=== PATIENT | male | born 1955 | race Asian ===

== ENCOUNTER 2016-07-22 05:14 | Inpatient (IN) | payer BC ==
--- NOTE | 2016-07-22 05:20 | EDPHY ---
H & P HPI/ROS: HPI CHIEF COMPLAINT: Seizure versus syncope HISTORY OF PRESENT ILLNESS: this patient very pleasant 61-year-old male, he presents emergency room by EMS after he had a unwitnessed syncope versus seizure at his work place. according to EMS patient arrived at work at 3:00 a.m. shortly after his coworkers found him lying on the ground there was description of generalized tonic-clonic seizure activity. He does arrive to the emergency room by EMS with a co-worker who states that they did not see him fall however found him on the ground and her seizure-like activity. Patient has no known history of seizures. Unclear what made him fall. The patient only tells me that he felt very dizzy/lightheaded prior to this. He did not know he passed out. He did not know he had a seizure. He presents in the ER in a cervical collar he is alert and orient x4, he has a GCS 15, he does speak some [place] however [place] language is [place]. He denies headache or neck pain. He does tell me that his only medical problem is hypertension he takes blood pressure medications he denies being on any blood thinners. patient denies chest pain or shortness of breath, denies extremity pain he is able to move everything. A last foreign language interpreter was used for history review of systems. Patient does take Toprol for blood pressure otherwise no other significant medical history he has been compliant this medication. He tells me his tetanus shot is up-to-date. He tells me that he felt dizzy room spinning sensation and lightheadedness before he passed out. He tells me that there is nobody around this happened. He has never had anything like this happen before. He denies chest pain or shortness of breath or palpitations prior to this happening. Past Medical History: Hypertension Past Surgical History: Denies surgical history Social History: Denies daily use of drugs alcohol tobacco products Family History: Noncontributory ROS REVIEW OF SYSTEMS: A comprehensive 10 point review of systems is otherwise negative aside from elements mentioned in the history of present illness. Exam Constitutional triage nursing summary reviewed, vital signs reviewed, awake/ alert. (Noted to be hypertensive) Eyes normal conjunctivae and sclera, EOMI, PERRLA. HENT head/neck: in cervical collar, no neck pain, head palpation hematoma right posterior occiput, laceration present left parietal region normal inspection, atraumatic, moist mucus membranes, no epistaxis, neck supple/ no meningismus, no raccoon eyes. oropharynx: This does show a left lateral tongue laceration from biting less than 1 cm nonsuturable. Respiratory clear to auscultation bilaterally, normal breath sounds, no respiratory distress, no wheezing. Cardiovascular rate normal, regular rhythm, no murmur, no edema, distal pulses normal. Gastrointestinal soft, non-tender, no rebound, no guarding, normal bowel sounds, no distension, no pulsatile mass. Genitourinary no CVA tenderness. Musculoskeletal no midline vertebral tenderness, full range of motion, no calf swelling, no tenderness of extremities, no meningismus, good pulses, neurovascularly intact. Skin pink, warm, & dry, no rash, skin atraumatic. Neurologic awake, alert and oriented x 3, AAOx3, moves all 4 extremities equally, motor intact, sensory intact, CN II-XII intact, normal cerebellar, normal vision, normal speech. Psychiatric normal mood/affect. Heme/Lymph/Immune no lymphadenopathy. Differential Diagnosis: Includes but is not limited to in a particular order, syncope, seizure, closed head injury, intracranial bleed, skull fracture, subdural, epidural, ACS, cardiac arrhythmia Medical Decision Making: This patient had an IV established will obtain blood work, Obtain a chest x-ray, CT scan of the head and CT scan of the cervical spine check EKG and blood work cardiac marker. It is unclear if this patient had a seizure activity, syncope with head strike that then led to seizure activity unclear if has a head bleed. Unwitnessed fall. Re-evaluation: EKG interpretation by me on record in [email or web address] system. Impression time of EKG is 5:33 a.m., this is sinus rhythm rate of 85, LVH is present. No signs of cardiac arrhythmia there is some motion artifact in lead 2, [address] depression or T-wave abnormality. V4 V5 V6 concerning for LVH. CT scan of the head without contrast for trauma. The results of the study are hypodense area left frontal region, old infarct versus possible small mass The study was read by Dr. Wilks . I viewed the images myself on the PACS system. CT scan of the for cervical spine without contrast for trauma The results of the study are negative for anything acute. The study was read by Dr. Wilks. I viewed the images myself on the PACS system. ED x-ray chest one view: 0603: re-evaluation at this time patient ambulated well to the bathroom however does complain of some dizziness. It is noted his blood pressure was 2 100s when he arrived in the emergency room. Blood work has been reviewed shows a low bicarb and elevated lactic acid most likely consistent with seizure. Procedure: Laceration repair. Verbal consent was obtained from the patient. The 4cm laceration on the left parietal scalp was anesthetized in the usual fashion. The wound was irrigated, draped and explored to its base with a gloved finger. There were no deep structures involved. No tendon injury was identified. The wound was repaired with 3 erin. The wound repair was uncomplicated. The procedure was performed by myself. This patient tolerated this very well. 0633: at this time I did re-evaluate the patient is resting comfortably no complaints. I was able to clear his cervical collar as CT C-spine had no acute traumatic injury and he has no midline cervical spine pain. This patient is neurological exam is unremarkable at this time. Based on his blood work it does appear that he had an acute seizure. Patient's blood pressure noted to be 190/100. I did give him 10 mg IV hydralazine. Patient's blood pressure is now down in the 180s. Due to this patient's hypertension, abnormal blood work indicating seizure, CT scan of the head that shows a old infarct versus small mass I will admit the patient to the hospital for further evaluation blood pressure control and evaluation of this lesion on his brain that may be contributing to seizure activity. ED x-ray chest one view: clear lung fox, cardiac silhouette normal in size unremarkable one view chest x-ray image interpreted by myself. 0642: spoke with Dr. carranza the hospitalist service agrees to admit this patient for better blood pressure control further evaluation of seizure. He did request that I give this patient 1 g of Keppra I have ordered this. Patient was given 10 mg of IV hydralazine is blood pressure is currently 180 systolic. Patient be admitted to the step-down unit for close observation of hypertension and seizure. And further evaluation of the lesion on his CT scan. Source: Patient, EMS Constitutional: Initial Vital Signs Temperature (C) 36.6 C 07/22/16 05:23 Heart Rate 84 07/22/16 05:23 Respiratory Rate 16 07/22/16 05:23 Blood Pressure 200/125 H 07/22/16 05:23 O2 Sat (%) 96 07/22/16 05:23 O2 Delivery Mode Room Air O2 (L/minute) 2 Allergies/Adverse Reactions: No Known Allergies Allergy (Verified 07/22/16 09:15) Home Medications: Medication Instructions Recorded Metoprolol Succinate Xr [Toprol Xl 100 mg PO BID 07/22/16 100 mg (*)] Medical Decision Making - Data Points Laboratory Results: Laboratory Results 07/23/16 04:25 07/23/16 04:25 Medications Given: Discontinued Medications Hydralazine HCl (Apresoline) 10 mg IVP EDNOW ONE Stop: 07/22/16 06:08 Last Admin: 07/22/16 06:15 Dose: 10 mg Sodium Chloride (Ns) 1,000 mls @ 0 mls/hr IV ONCE ONE PRN Reason: As Directed Stop: 07/22/16 05:24 Last Admin: 07/22/16 05:36 Dose: 1,000 mls Sodium Chloride (Ns) 1,000 mls @ 0 mls/hr IV ONCE ONE PRN Reason: Wide Open Stop: 07/22/16 06:01 Last Admin: 07/22/16 06:00 Dose: 1,000 mls Levetiracetam 1,000 mg/ Sodium (Chloride) 110 mls @ 440 mls/hr IV EDNOW ONE Stop: 07/22/16 06:57 Last Admin: 07/22/16 07:07 Dose: 110 mls Metoprolol Succinate (Toprol Xl) 25 mg PO DAILY KAM Stop: 01/18/17 08:59 Last Admin: 07/22/16 10:20 Dose: 25 mg Potassium Chloride (Klor-Con) 20 meq PO ONCE ONE Stop: 07/23/16 14:18 Last Admin: 07/23/16 15:11 Dose: 20 meq Departure - Departure Disposition: [facility] Acute Clinical Impression: Seizure Hypertension Qualifiers: Hypertension type: essential hypertension Qualifier Code: (I10) Essential ( primary) hypertension Condition: Fair
[2016-07-22] MEDS ORDERED: NS 1,000 ML IV ONE ×2 (05:23→06:00)
--- NOTE | 2016-07-22 05:34 | CPEKG ---
Heart Rate: 85 RR Interval: 706 P-R Interval: 164 QRSD Interval: 80 QT Interval: 396 QTC Interval: 471 P Hickman: 28 QRS Hickman: 16 T Wave Hickman: 22 EKG Severity - ABNORMAL ECG - EKG Impression: SINUS RHYTHM EKG Impression: LEFT VENTRICULAR HYPERTROPHY EKG Impression: ST elevation septal leads, consider acute CO. Electronically Signed By: Storm Sarah 26-Jul-2016 16:52:23
[2016-07-22 05:39] LABS: % IMMATURE GRANULYOCYTES 2.3 % (0.0-1.1); ABSOLUTE IMMATURE GRANULOCYTES 0.23 10^3/uL (0.00-0.10); ADD DIFF? NO; ADD MORPH? NO; ADD SCAN? NO; ATYPICAL LYMPHOCYTE FLAG 10 (0-99); FRAGMENT RBC FLAG 0 (0-99); HEMATOCRIT 53.6 % (40.0-51.0); HEMOGLOBIN 17.9 g/dL (13.7-17.5); LEFT SHIFT FLG 10 (0-99); LIPEMIA HEMOLYSIS FLAG 80 (0-99); MEAN CELL HEMOGLOBIN 31.5 pg (27.9-34.1); MEAN CELL HEMOGLOBIN CONCENTR. 33.4 g/dL (32.4-36.7); MEAN CELL VOLUME 94.2 fL (81.5-99.8); MEAN PLATELET VOLUME 9.8 fL (8.7-11.7); PLATELET CLUMPS FLAG 10 (0-99); PLATELET COUNT 207 10^3/uL (150-400); RED BLOOD CELL COUNT 5.69 10^6/uL (4.40-6.38); RED CELL DISTRIBUTION WIDTH 13.8 % (11.5-15.2)
[2016-07-22 05:52] LABS: PROTIME(PATIENT) 13.1 SEC (12.0-15.0)
[2016-07-22 05:53] LABS: APTT 26.6 SEC (23.0-38.0)
[2016-07-22 05:55] LABS: ALANINE AMINOTRANSFERASE 73 IU/L (21-72); ALBUMIN 4.4 g/dL (3.5-5.0); ALKALINE PHOSPHATASE 160 IU/L (38-126); ANION GAP 26 mEq/L (8-16); ASPARTATE AMINOTRANSFERASE 78 IU/L (17-59); BILIRUBIN-CONJUGATED 0.4 mg/dL (0.0-0.5); BILIRUBIN-UNCONJUGATED 0.6 mg/dL (0.0-1.1); CALCIUM 9.2 mg/dL (8.5-10.4); CARBON DIOXIDE 15 mEq/l (22-31); CHLORIDE 102 mEq/L (97-110); CREATININE 1.1 mg/dL (0.7-1.3); GLOMERULAR FILTRATION RATE > 60; GLUCOSE 96 mg/dL (70-100); MAGNESIUM 2.6 mg/dL (1.6-2.3); POTASSIUM 3.5 mEq/L (3.5-5.2); SODIUM 143 mEq/L (134-144); TOTAL PROTEIN 7.9 g/dL (6.3-8.2)
[2016-07-22 06:07] LABS: CK-MB INTERPRETATION NEGATIVE (NEGATIVE); CREATINE KINASE-MB FRACTION 2.54 ng/mL (0-3.19); TROPONIN I 0.018 ng/mL (0-0.034)
[2016-07-22] MEDS ORDERED: hydrALAZINE 20 MG/ML VIAL IVP ONE (06:07)
[2016-07-22] MEDS ORDERED: levETIRAcetam 1,000 MG in NS 100 ML IV ONE (06:43)
--- NOTE | 2016-07-22 07:19 | PDGENHP ---
History and Physical - Chief Complaint Acute unresponsiveness - History of Present Illness PCP: Unclear HPI: 59-year-old male presents with acute unresponsiveness with onset of symptoms around 3:00 a.m. on the day of presentation. Per witness, the patient was found down on the floor experiencing what may have been generalized tonic- clonic activity. It is unclear how long the patient may have been unconscious. The patient reports that he experienced generalized fatigue after he awoke from this state. The patient does not recall passing out but he does recall generalized dizziness and lightheadedness with what he describes as the room spinning immediately prior to losing consciousness. Denies palpitations or chest pain. Reports that prior to experiencing the symptoms, he had been feeling somewhat unusual on the date of presentation with some lightheadedness that he attempted to alleviate by having a cup of coffee prior to going to work. The patient works warehouse shift supervisor at a [employer] and the episode occurred while at work. The patient reportedly does not carry any heavy materials and the patient did not have any materials fall on him during the episode. The patient reports that he has been taking his home blood pressure medication as prescribed, and he has not recently had any medication changes. He does not recall his most recent blood pressure readings. History Information - Allergies/Home Medication List Allergies/Adverse Reactions: No Known Allergies Allergy (Unverified 07/22/16 06:07) Home Medications: Toprol 07/22/16 [Last Taken Unknown] I have personally reviewed and updated: family history, medical history, social history, surgical history - Past Medical History hypertension Additional medical history: No past history of seizure - Surgical History Reports: no pertinent surgical hx - Family History Additional family history: No family history of seizure or malignancy - Social History Smoking Status: Never smoked Alcohol Use: Occasionally (Last use on ', has never experienced acute alcohol withdrawal, does not drink daily) Drug Use: None Additional social history: Patient is normally independent in his ADLs, he does not experience chest pain or shortness of breath with activity or exertion Review of Systems ROS: 10pt was reviewed & negative except for what was stated in HPI & below Constitutional: Reports: other (Head pain) EENMT: Reports: other (Left mouth) Neurological: Reports: other (Unresponsiveness) Physical Exam Temp Pulse Resp BP Pulse Ox 36.6 C 84 16 200/125 H 96 07/22/16 05:23 07/22/16 05:23 07/22/16 05:23 07/22/16 05:23 07/22/16 06:15 Constitutional: no apparent distress, appears nourished, uncomfortable, No not in pain, No chronically ill appearing Eyes: PERRL, anicteric sclera, EOMI Ears, Nose, Mouth, Throat: moist mucous membranes, hearing normal, other (Left tongue laceration with some dried blood) Cardiovascular: regular rate and rhythym, no murmur, rub, or gallop, other (No abdominal bruits), No edema Respiratory: no respiratory distress, no rales or rhonchi, clear to auscultation Gastrointestinal: normoactive bowel sounds, soft, non-tender abdomen, no palpable masses Skin: other (Left scalp laceration with dried blood, stapled, no surrounding erythema) Neurologic: AAOx3, sensation intact bilaterally, CN II-XII Intact, No weakness ( Motor strength 5/5 bilateral upper and lower extremities), No facial droop Psychiatric: interacting appropriately, not anxious, not encephalopathic, thought process linear, other (Fatigue but responsive to verbal stimuli) Lab Data & Imaging Review 07/22/16 05:30 07/22/16 05:30 WBC 9.81 10^3/uL (3.80-9.50) H 07/22/16 05:30 RBC 5.69 10^6/uL (4.40-6.38) 07/22/16 05:30 Hgb 17.9 g/dL (13.7-17.5) H 07/22/16 05:30 Hct 53.6 % (40.0-51.0) H 07/22/16 05:30 MCV 94.2 fL (81.5-99.8) 07/22/16 05:30 MCH 31.5 pg (27.9-34.1) 07/22/16 05:30 MCHC 33.4 g/dL (32.4-36.7) 07/22/16 05:30 RDW 13.8 % (11.5-15.2) 07/22/16 05:30 Plt Count 207 10^3/uL (150-400) 07/22/16 05:30 MPV 9.8 fL (8.7-11.7) 07/22/16 05:30 Neut % (Auto) 50.8 % (39.3-74.2) 07/22/16 05:30 Lymph % (Auto) 35.1 % (15.0-45.0) 07/22/16 05:30 Centre % (Auto) 9.7 % (4.5-13.0) 07/22/16 05:30 Eos % (Auto) 1.2 % (0.6-7.6) 07/22/16 05:30 Baso % (Auto) 0.9 % (0.3-1.7) 07/22/16 05:30 Nucleat RBC Rel Count 0.0 % (0.0-0.2) 07/22/16 05:30 Absolute Neuts (auto) 4.98 10^3/uL (1.70-6.50) 07/22/16 05:30 Absolute Lymphs (auto) 3.44 10^3/uL (1.00-3.00) H 07/22/16 05:30 Absolute Monos (auto) 0.95 10^3/uL (0.30-0.80) H 07/22/16 05:30 Absolute Eos (auto) 0.12 10^3/uL (0.03-0.40) 07/22/16 05:30 Absolute Basos (auto) 0.09 10^3/uL (0.02-0.10) 07/22/16 05:30 Absolute Nucleated RBC 0.00 10^3/uL (0-0.01) 07/22/16 05:30 Immature Gran % 2.3 % (0.0-1.1) H 07/22/16 05:30 Immature Gran # 0.23 10^3/uL (0.00-0.10) H 07/22/16 05:30 PT 13.1 SEC (12.0-15.0) 07/22/16 05:30 INR 1.00 (0.83-1.16) 07/22/16 05:30 APTT 26.6 SEC (23.0-38.0) 07/22/16 05:30 VBG Lactic Acid 7.8 mmol/L (0.7-2.1) H 07/22/16 05:35 Sodium 143 mEq/L (134-144) 07/22/16 05:30 Potassium 3.5 mEq/L (3.5-5.2) 07/22/16 05:30 Chloride 102 mEq/L (97-110) 07/22/16 05:30 Carbon Dioxide 15 mEq/l (22-31) L 07/22/16 05:30 Anion Gap 26 mEq/L (8-16) 07/22/16 05:30 BUN 16 mg/dL (7-23) 07/22/16 05:30 Creatinine 1.1 mg/dL (0.7-1.3) 07/22/16 05:30 Estimated GFR > 60 07/22/16 05:30 Glucose 96 mg/dL (70-100) 07/22/16 05:30 Calcium 9.2 mg/dL (8.5-10.4) 07/22/16 05:30 Magnesium 2.6 mg/dL (1.6-2.3) H 07/22/16 05:30 Total Bilirubin 1.0 mg/dL (0.1-1.4) 07/22/16 05:30 Conjugated Bilirubin 0.4 mg/dL (0.0-0.5) 07/22/16 05:30 Unconjugated Bilirubin 0.6 mg/dL (0.0-1.1) 07/22/16 05:30 AST 78 IU/L (17-59) H 07/22/16 05:30 ALT 73 IU/L (21-72) H 07/22/16 05:30 Alkaline Phosphatase 160 IU/L (38-126) H 07/22/16 05:30 Creatine Kinase 339 IU/L (0-224) H 07/22/16 05:30 CK-MB (CK-2) Fraction 2.54 ng/mL (0-3.19) 07/22/16 05:30 CK-MB (CK-2) % 0.7 % (0.0-4.0) 07/22/16 05:30 Creatine Kinase Interp NEGATIVE (NEGATIVE) 07/22/16 05:30 Troponin I 0.018 ng/mL (0-0.034) 07/22/16 05:30 NT-Pro-B Natriuret Pep 198 pg/mL (0-125) H 07/22/16 05:30 Total Protein 7.9 g/dL (6.3-8.2) 07/22/16 05:30 Albumin 4.4 g/dL (3.5-5.0) 07/22/16 05:30 Lipase 321.0 IU/L (23-300) H 07/22/16 05:30 Visualized and Interpreted Chest x-ray results: Yes Chest X-Ray results: other (Some interstitial prominence as well as hilar fullness without focal infiltrate) Visualized and Interpreted EKG results: Yes EKG Interpretation: Positive for: other (Normal sinus rhythm with left ventricular hypertrophy) Assessment & Plan Assessment: 61-year-old male presents with acute unresponsiveness, suspected seizure Plan: 1. Unresponsiveness. Acute, new problem this provider, further workup indicated. Suspect this was secondary to seizure, although it is unclear whether this seizure was initial precipitating event versus some other type of neurologic event such as a stroke -given his head CT findings, rule out brain mass with MRI -perform stroke neurologic imaging rule out with brain MRI as well as brain MRA , hold on echocardiogram until neuro imaging either supports or refutes diagnosis of CVA 2. Suspected seizure. Acute, new problem this provider, further workup indicated. Evidenced by lactic acidosis with witnessed seizure-like activity, new onset -placed on neuro checks, seizure precautions -neuro imaging as outlined above -discussed with Dr. Kemp in the emergency department, we both agree that loading him with Keppra is appropriate at this time and Keppra will be continued 500 mg twice daily -Neurology consultation ordered and appreciated -will get follow up serum lactic acid level as well as follow-up troponin and D- dimer to rule out pulmonary embolism as potential precipitating events 3. Hypertensive crisis. Evidence by systolic blood pressure of 2/100 on presentation but it is unclear whether this is hypertensive urgency versus hypertensive emergency, unclear whether this is the cause of his suspected seizure versus hypertensive response to possible CVA -given the potential dangers of lowering his blood pressure too quickly and the potential of precipitating tissue ischemia and infarct, we will currently allowed permissive hypertension with systolic blood pressures ranging between 180 and 220 -that being said, if the patient begins developing symptoms with these blood pressure readings, he should receive p.r.n. IV treatment symptomatically with either labetalol or hydralazine -will monitor him in the step-down unit given the high risk of morbidity or mortality if these readings are not interpreted clinically 4. Transaminitis. Unclear etiology, unclear significance, will continue to monitor and hold on liver imaging at this time pending further neuro workup 5. Possible pulmonary fibrosis. Based on chest x-ray imaging, hold on pulmonary imaging until neuro imaging has been performed so we can determine whether a CT with IV contrast versus high-resolution without contrast would be appropriate (pending whether patient has an actual brain mass on MRI) Diet. Regular Prophylaxis. Moderate risk patient, SCDs Code. Full Disposition. Anticipated discharge is 07/23/2016, pending further workup and potential treatment of above. The patient requires more diagnostic testing based on the above results, he will be upgraded to inpatient admission status at that time.
--- NOTE | 2016-07-22 08:30 | DX ---
Portable Chest, Single View July 22, 2016, 6:23 a.m. Indication: Chest pain. Findings: Lungs have diffuse moderate peribronchial thickening and linear patchy bibasilar opacities which likely represent atelectasis. Heart is minimally enlarged. No effusion. Impression: 1. Moderate airways disease. 2. Minimal cardiomegaly. No failure.
[2016-07-22] MEDS ORDERED: METOPROLOL SUCCINATE XR 25 MG TAB PO SCH (09:00)
[2016-07-22] MEDS ORDERED: GADOBUTROL 10 ML VIAL IVP ONE ×2 (10:27→12:30)
--- NOTE | 2016-07-22 13:56 | NEUROPROG ---
Assessment: CC: New seizure HPI: This 61M patient was initially seen on 07/22/16 as an inpatient consult at [facility]. He was in good health on 07/21/16 but was found in the middle of the night having a generalized tonic-clonic seizure. He reported preceding sense of dizziness and lightheadedness but does not recall passing out. He denied prior seizures or neurologic problems. Head CT showed possible old stroke versus brain mass so a brain MRI was pending. Pt currently resting comfortably in bed. His blood pressure has been quite high since admission. PMHx: HTN SHx: mild alcohol use FHx: no seizures ROS: Pt denied acute fever, total vision loss, active severe chest pain, respiratory failure, total body severe rash, total bowel/bladder incontinence, psychosis, active seizures, or active bleeding O: VS bp 200/125 P82 RR16 Satting 99% on 2L NC Temp 36.6C General: Somnolent, tongue and lips have abrasians where he bit them during seizure Eyes: Fundoscopic exam not able to visualize optic disks CV: Heart RRR, no murmur, no carotid bruit Lungs: Clear to auscultation bilaterally, no rhonci or rales Neuro: - Mental: somnolent but arousable .~~~~ Oriented x person/place/date .~~~~ concentration appears normal .~~~~ speech fluency/comprehension normal .~~~~ memory appears normal .~~~~ fund of knowledge appear intact - Cranial Nerves: .~~~~ II: PERRL, VFFTC .~~~~ III/IV/: EOMI, no nystagmus, normal smooth pursuits, no Ptosis .~~~~ V: facial sensation intact to LT .~~~~ VII: face symmetric to eye closure and smile .~~~~ VIII: hearing intact to conversation .~~~~ IX/X: uvula raises symmetrically .~~~~ XI: SCM 5/5 B/L strength .~~~~ XII: tongue protrudes midline w/nl strength - Motor: .~~~~ Tone: normal tone in all 4 extrem .~~~~ Strength: no pronator drift, strength 5/5 throughout (B/L delt, bic, tri, hand surgery specialist, hf/he, df/pf) - Reflexes: B/L bic 2/4 - Sensory: all 4 extrem intact to light touch - Coord: [id number] wnl, STEVEN wnl, [id number] wnl - Gait: deferred Labs: 07/22/16- TSH wnl, CBC WBC 9.81 Hct 53.6H, CK 339 Rads: 07/22/16- Head CT w/o con: old CVA versus brain mass (I personally visualized the images) Assessment: 1. New Generalized Seizure: Unclear cause, brain MRI pending 2. Possible stroke or brain mass on head CT: Brain MRI pending 3. HTN Plan: - blood pressure goal < 220/120 until acute stroke ruled out (based on brain MRI results) - Brain MRI w/ and /wo con, MRA - Agree with Keppra 500mg bid started in [facility] ER - Seizure precautions and no driving for 90 days - F/U with neurology service 6 weeks after discharge Neurology will continue to follow Objective: Vital Signs Temp Pulse Resp BP Pulse Ox 36.6 C 83 19 115/78 97 07/22/16 09:30 07/22/16 10:20 07/22/16 09:30 07/22/16 10:20 07/22/16 09:30 07/21/16 07/22/16 07/23/16 05:59 05:59 05:59 Intake Total 2000 Output Total 300 Balance 1700 PT 13.1 SEC (12.0-15.0) 07/22/16 05:30 INR 1.00 (0.83-1.16) 07/22/16 05:30 Allergies/Adverse Reactions: No Known Allergies Allergy (Verified 07/22/16 09:15)
[2016-07-22] MEDS: NS W/ 20 KCl/L 1,000 ML IV SCH ×2 (14:30→23:39)
--- NOTE | 2016-07-22 15:22 | MR ---
MR Arteriogram of the [place] , 2016 Indication: Fall. Trauma. Syncope versus seizure. R29.818 Neurological changes strongly suggesting i ntracerebral aneurysm. Technique: A [id number] gradient echo technique was used for thin axial images at the skull base for evaluation of major vessels of the [place]. Three-dimensional technique was used with a 30-degree gradient echo flip angle and a traveling saturation band. Images were manipulated by the radiologist at the computer workstation. Findings: A small 3.5 mm anterior communicating artery aneurysm is present just right of midline on images 88 through 92 of the axial source data. The anterior and posterior circulation is otherwise no rmal. No occlusion, filling defect, or stenosis. No other intracranial aneurysm. Impression: 1. 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 2. No occlusion or evidence of embolic disease. Comment: I have reviewed the case with Dr. Fidel Grace who is in agreement regarding the ACOM aneu rysm. The results were discussed with Dr. Kennedy, the hospitalist, at 1400 hours on July 22, 2016
--- NOTE | 2016-07-22 15:31 | MR ---
MR Angiography of the Neck Clinical Indications: Syncope. Evaluate for CVA. Technique: After a preliminary timing bolus run, a three-dimensional vascular [id number] study w as performed from the upper chest to the skull base, using a total of 10 (gadolinium) intravenously. Images were manipulated by the radiologist at the computer workstation. Findings: The aortic arch has typical three-vessel branching anatomy. The common carotid arteries a nd vertebral arteries are patent. The carotid and vertebral arteries are widely patent. No occlusion, dissection, or flow-limiting stenosis. Impression: Normal magnetic resonance angiogram of the neck. Measurement of carotid stenosis is based on the residual internal carotid diameter with [place] n Symptomatic Carotid Endarterectomy Trial (NASCET) based stenosis levels.
--- NOTE | 2016-07-22 15:34 | MR ---
MRI of the Brain (Without and With Contrast) July 22, 2016 Indication: Fall. Trauma. Possible seizure. Question of mass on noncontrast head CT. Technique: T1-weighted images were acquired axially and sagittally from the foramen magnum to the ve rtex. Axial fast inversion recovery, fast T2-weighted, susceptibility, and diffusion-weighted axial images were obtained without contrast. Postcontrast axial and coronal images with the uneventful intr avenous administration of 10 mL Gadavist contrast. Comparison: Noncontrast head CT dated July 22, 2016. Findings: Diffusion-weighted imaging is normal. No evidence of acute ischemia. FLAIR and T2-weighted imaging reveals moderate volume of periventricular and subcortical white matter disease throughout t he frontoparietal lobes. Postcontrast imaging is normal. No underlying mass or actively demyelinating lesion. No dural thickening or abnormal enhancement of the leptomeninges. No intracranial hemorrhage or subdural hematoma. Ventricular system is normal in caliber and midline. Skin erin are present along the high posterior left scalp and a small superficial scalp hematoma i s present along the posterior right parietal convexity. The cervicooccipital junction is normal. The pituitary gland is normal in size. The paranasal sinuses are clear. The orbits are normal. Impression: 1. No acute intracranial hemorrhage or evidence of ischemia. 2. No intracranial mass. 3. Moderate frontal and parietal periventricular and subcortical white matter disease may be sequela of small vessel disease related to hypertension or diabetes mellitus or sequela from previous infecti on, trauma, or other demyelinating process. Comment: Negative results were communicated to Dr. Kennedy.
[2016-07-22] MEDS: levETIRAcetam 500 MG TAB PO SCH ×2 (19:35→20:45)
[2016-07-22] MEDS: METOPROLOL SUCCINATE XR 100 MG TAB PO SCH (19:35)
--- NOTE | 2016-07-22 20:59 | CT ---
CT Brain Without Contrast 0555 hours History: Recent fall and syncope. Possible seizure. Technique: Axial computed tomographic images of the brain without contrast. Images were reconstruct ed down to 1.25 mm slice thickness. Dose reduction techniques were utilized. Findings: Ventricles, cisterns, and sulci are widened consistent with mild age related atrophy. No h ydrocephalus, masses, midline shift/herniation, or subdural hematomas. No intraparenchymal hemorrhage or mass effect. Mild to moderate hypodensities are seen in the white matter of bilateral cerebral he mispheres. There is a more focal area of decreased attenuation left frontal periventricular white mat ter the could represent a lacunar infarct versus possibility of edema and gliosis from mass. There i s no acute peripheral cerebral infarct seen. Arteriosclerotic calcifications are noted associated wi th distal ICA in the parasellar location bilaterally. Bone windows demonstrate no displaced fractures. Paranasal sinuses and mastoid air cells are clear. Impression: 1. Mild age related atrophy. 2. No hemorrhage, mass effect, or definite acute peripheral infarct. 3. Mild microvascular ischemic disease. 4. More prominent focal hypodense region left frontal periventricular white matter the could represen t a confluent area of ischemic change, lacunar infarct, or possible edema and gliosis from a mass. Co nsider MRI at some point for further characterization. The study was performed as an emergency on-call case and discussed by telephone with Dr. Asher chery at 0614 hrs. The final interpretation is concordant with the original communication.
--- NOTE | 2016-07-22 21:02 | CT ---
CT Cervical Spine 0555 hours History: Recent trauma. Evaluate for possible cervical spine injury. Technique: Spiral imaging was obtained from the base of skull to the upper chest. Images were reconst ructed at 1.25 mm slice thickness. Images were reconstructed in multiple planes. Dose reduction techn iques were utilized. Findings: Vertebral body heights are well maintained. There are no subluxations. No fractures are see n. Mild left-sided facet hypertrophy is noted at C2-C3. The remainder the facet joints appear to be n ormal. Mild disk space narrowing is present at C5-C6. Paravertebral soft tissues demonstrate no signi ficant abnormality. Impression: 1. No acute osseous abnormality seen about the cervical spine. 2. Prominent interstitial markings left upper lobe. This could be related to some underlying intersti tial lung disease. The study was performed as an emergency on-call case and discussed by telephone with Dr. Asher chery at 0614 hrs. The final interpretation is concordant with the original communication.
[2016-07-23 04:51] LABS: % IMMATURE GRANULYOCYTES 0.9 % (0.0-1.1); ABSOLUTE IMMATURE GRANULOCYTES 0.06 10^3/uL (0.00-0.10); ADD DIFF? NO; ADD MORPH? NO; ADD SCAN? NO; ATYPICAL LYMPHOCYTE FLAG 10 (0-99); FRAGMENT RBC FLAG 0 (0-99); HEMATOCRIT 42.5 % (40.0-51.0); LEFT SHIFT FLG 0 (0-99); LIPEMIA HEMOLYSIS FLAG 80 (0-99); MEAN CELL HEMOGLOBIN 31.3 pg (27.9-34.1); MEAN CELL HEMOGLOBIN CONCENTR. 32.9 g/dL (32.4-36.7); MEAN CELL VOLUME 95.1 fL (81.5-99.8); MEAN PLATELET VOLUME 9.6 fL (8.7-11.7); PLATELET CLUMPS FLAG 10 (0-99); PLATELET COUNT 138 10^3/uL (150-400); RED BLOOD CELL COUNT 4.47 10^6/uL (4.40-6.38); RED CELL DISTRIBUTION WIDTH 14.2 % (11.5-15.2)
[2016-07-23 04:56] LABS: ALANINE AMINOTRANSFERASE 52 IU/L (21-72); ALBUMIN 2.6 g/dL (3.5-5.0); ALKALINE PHOSPHATASE 62 IU/L (38-126); ANION GAP 6 mEq/L (8-16); ASPARTATE AMINOTRANSFERASE 47 IU/L (17-59); BILIRUBIN,TOTAL 1.2 mg/dL (0.1-1.4); CALCIUM 7.8 mg/dL (8.5-10.4); CARBON DIOXIDE 24 mEq/l (22-31); CHLORIDE 114 mEq/L (97-110); CREATININE 0.8 mg/dL (0.7-1.3); GLOMERULAR FILTRATION RATE > 60; GLUCOSE 79 mg/dL (70-100); MAGNESIUM 2.2 mg/dL (1.6-2.3); POTASSIUM 3.4 mEq/L (3.5-5.2); SODIUM 144 mEq/L (134-144)
[2016-07-23] MEDS: METOPROLOL SUCCINATE XR 100 MG TAB PO SCH ×2 (08:50→19:52)
[2016-07-23] MEDS: levETIRAcetam 500 MG TAB PO SCH ×2 (08:50→19:51)
[2016-07-23] MEDS: ACETAMINOPHEN 325 MG TAB PO PRN (08:57)
--- NOTE | 2016-07-23 10:29 | HOSPPROG ---
Hospitalist Progress Note Assessment/Plan: Seizure - first event, no further seizures since initiation of Keppra. No e/o CVA on MRI. Continue Keppra. Outpatient neurology f/u planned. Pt advised no driving until cleared by Neurology. Hypertension - bp ~160's/100 this am. Will add Lisinopril, cont Toprol. Aim for BP <160/90 with aneurysm. 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 Discussed with Dr. Fernando, will f/u as outpt. Full code Dispo - transfer to PCU, likely dc in am. Subjective: PT feels well. No more seizures. Had a BISHOP this am associated with high BP, but denies BISHOP or vision changes during my interview. Objective: Vital Signs Temp Pulse Resp BP Pulse Ox 36.8 C 68 14 154/86 H 94 07/23/16 08:15 07/23/16 08:15 07/23/16 08:15 07/23/16 08:15 07/23/16 08:15 Laboratory Results 07/23/16 04:25 07/23/16 04:25 07/22/16 07/23/16 07/24/16 05:59 05:59 05:59 Intake Total 4223 Output Total 800 Balance 3423 PT 13.1 SEC (12.0-15.0) 07/22/16 05:30 INR 1.00 (0.83-1.16) 07/22/16 05:30 - Physical Exam Constitutional: no apparent distress Eyes: PERRL Ears, Nose, Mouth, Throat: moist mucous membranes, other (head lac repair without drainage) Cardiovascular: regular rate and rhythym Respiratory: no respiratory distress, clear to auscultation Gastrointestinal: normoactive bowel sounds, soft, non-tender abdomen Skin: warm Neurologic: AAOx3, CN II-XII Intact Psychiatric: interacting appropriately ICD10 Worksheet Patient Problems: Problems Problem Status Diagnosed Hypertension Acute Seizure Acute
--- NOTE | 2016-07-23 12:34 | NEUROPROG ---
Assessment: CC: New seizure HPI: This 61M patient was initially seen on 07/22/16 as an inpatient consult at [facility]. He was in good health on 07/21/16 but was found in the middle of the night having a generalized tonic-clonic seizure. He reported preceding sense of dizziness and lightheadedness but does not recall passing out. He denied prior seizures or neurologic problems. Head CT showed possible old stroke versus brain mass so a brain MRI was pending. Pt currently resting comfortably in bed. His blood pressure has been quite high since admission. F/U visit on 07/23/16 at [facility]. No new seizures and no events overnight. Brain MRI w/ and w/o con and MRA head/neck unremarkable for tumor or stroke. Did show incidental 3.5 mm ANGEL aneurysm. Pt denied complaints. PMHx: HTN, Single seizure 07/21/16 SHx: mild alcohol use FHx: no seizures ROS: Pt denied acute fever, total vision loss, active severe chest pain, respiratory failure, total body severe rash, total bowel/bladder incontinence, psychosis, active seizures, or active bleeding Labs: 07/22/16- TSH wnl, CBC WBC 9.81 Hct 53.6H, CK 339 Rads: 07/22/16- Head CT w/o con: old CVA versus brain mass (I personally visualized the images) Assessment: 1. New Generalized Seizure 07/22/16: Unclear cause, brain MRI and MRA head/neck on 07/22/16 w/o any major problem to explain and normal neurologic exam on . Will get outpatient EEG in future and continue AED's until then. 2. 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 Fernando) 3. HTN Plan: - blood pressure goal deferred to hospitalist - Discharge on Keppra 500mg bid - Seizure precautions and no driving for 90 days (I counseled patient on this) - F/U with neurology service 6 weeks after discharge, will get an EEG at that time Neurology will sign off. 35 min spent with patient and his daughter, majority of time counseling on seizures, prognosis, and treatment options. Objective: Vital Signs Temp Pulse Resp BP Pulse Ox 36.7 C 63 18 141/87 H 95 07/23/16 11:47 07/23/16 11:47 07/23/16 11:47 07/23/16 11:47 07/23/16 11:47 Laboratory Results 07/23/16 04:25 07/23/16 04:25 07/22/16 07/23/16 07/24/16 05:59 05:59 05:59 Intake Total 4223 Output Total 800 Balance 3423 PT 13.1 SEC (12.0-15.0) 07/22/16 05:30 INR 1.00 (0.83-1.16) 07/22/16 05:30 Allergies/Adverse Reactions: No Known Allergies Allergy (Verified 07/22/16 09:15)
[2016-07-23] MEDS: oxyCODONE IR 5 MG TAB PO PRN (14:02)
[2016-07-23] MEDS ORDERED: POTASSIUM CL 20 MEQ TAB PO ONE (14:17)
[2016-07-23] MEDS: LISINOPRIL 10 MG TAB PO SCH (15:11)
[2016-07-24] MEDS: ACETAMINOPHEN 325 MG TAB PO PRN (00:29)
[2016-07-24] MEDS: oxyCODONE IR 5 MG TAB PO PRN ×2 (00:29→11:14)
[2016-07-24 07:43] VITALS: PULSE 61; RESP 13; TEMP 98.2
[2016-07-24] MEDS: levETIRAcetam 500 MG TAB PO SCH (08:02)
[2016-07-24] MEDS: LISINOPRIL 10 MG TAB PO SCH (08:03)
[2016-07-24] MEDS: METOPROLOL SUCCINATE XR 100 MG TAB PO SCH (08:03)
[2016-07-24 11:47] VITALS: BP 150/98; O2SAT 97
--- NOTE | 2016-07-24 22:10 | GDS ---
[f rep st] DISCHARGE SUMMARY DISCHARGE DIAGNOSES: 1. New-onset seizure. 2. Hypertension. 3. 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 CONSULTANTS: Dr. Josiah Medina, Neurology. HISTORY: For details, please see the dictated history and physical dated July [address] Real fernández. In brief, the patient is a 61-year-old male with a history of hypertension, who presented to [facility] after a witnessed tonic-clonic seizure in his work environment. He was admitt ed to the hospital for further evaluation. HOSPITAL COURSE: The patient initially appeared postictal. CT brain was performed which showed no a cute hemorrhage, mass effect, or infarct. Some nonspecific changes were noted and a brain MRI I foll owed, which was negative for evidence of ischemia or intracranial hemorrhage. He then underwent head and neck MR angiogram which was negative for any large vessel occlusions. A Neurology consult was o btained. The patient was loaded on Keppra and then continued on 500 mg b.i.d.. He had no further se izure activity during the hospitalization. He was monitored on seizure precautions and advised no dr mg for 90 days and until cleared by Neurology. He was continued on his Toprol for hypertension ma nagement and lisinopril was added to ensure improved hypertension control, especially in the setting of a newly diagnosed aneurysm. This aneurysm is likely an incidental finding and is small at 3.5 mm. I discussed this with Neurosurgery and the patient can follow up with Dr. Fernando in the outpatient carrier clinic for ongoing monitoring and further recommendations. DISPOSITION: Patient was discharged home in stable condition. FOLLOWUP: 1. Primary care physician for blood pressure recheck in 1-2 weeks. 2. Neurology, Dr. Josiah Medina, in [address] Edwin Fernando, Neurosurgery, in 3-4 weeks. DISCHARGE MEDICATIONS: Please see tu.[email or web address] for complete updated outpatient medication list. New medications on discharge include Keppra 500 mg p.o. b.i.d. (#60, no refills), lisinopril 10 mg p. o. daily (#30, no refills), and oxycodone IR 5 mg p.o. q.6 hours p.r.n. (#10, no refills). /[id number]/MODL
== END 2016-07-24 13:04 | disposition home or self-care (01) | DRG 101 ==
LOC: EDUNIT# → INTOOBSV 06:41 → F2N 09:27 → OBSVTOIN 07-23 14:17
PROVIDERS: ADMIT Internal Medicine; ATTEND Hospitalist
DX: R56.9 Unspecified convulsions (principal); R55 Syncope and collapse; I16.9 Hypertensive crisis, unspecified; I10 Essential (primary) hypertension; I67.1 Cerebral aneurysm, nonruptured
CPT/HCPCS: 92523-GN; 96374; 97116-GP; 97161-GP; 97165-GO; A9585; G0378; J0360; J1953

== ENCOUNTER → 2016-08-21 | Outpatient (CLI) | payer BC ==
--- NOTE | 2016-08-21 15:23 | CPEEG ---
[f rep st] ELECTROENCEPHALOGRAM DATE OF STUDY: 08/21/2016 INTERPRETATION: Normal EEG during wakefulness and sleep. There were no potentially epileptogenic ab normalities present recording. REPORT: This EEG contains 10 Hz alpha to the posterior head regions. There was no abnormal activati on at rest, during photic stimulation hyperventilation. The patient became drowsy and fell asleep du ring the study. There were no abnormalities seen during drowsiness, sleep, or during times of arousa l. /[id number]/MODL
== END ==
LOC: FCPNEURO 10:18
PROVIDERS: ATTEND Psychiatry & Neurology Neurology
DX: G40.909 Epilepsy, unspecified, not intractable, without status epilepticus (principal); I67.1 Cerebral aneurysm, nonruptured